=== PATIENT | female | born 1960 | race African-American/Black ===

== ENCOUNTER 2017-03-04 16:31 | Emergency (ER) | payer BC ==
[~2017-03-04] VITALS: Ht 170.2 cm; Wt 91.5 kg
[2017-03-04 16:36] VITALS: TEMP 36.6; Ht 170.2 cm; Wt 91.5 kg
[2017-03-04] MEDS ORDERED: ONDANSETRON INJ 2 MG/ML 2 ML VIAL IV STA (16:55)
[2017-03-04] MEDS ORDERED: SODIUM CHLORIDE 0.9% 1000ML 1,000 ML IV STA (16:55)
--- NOTE | 2017-03-04 17:05 | EMERGENCY ROOM VISIT NOTE ---
History Report prepared by You: Nessa Hopkins Under the Supervision of: Dr. Sandor Koehler M.D. First contact with patient: 16:40 Chief Complaint: NAUSEA Stated Complaint: VOMIT, CHILLS, DIAHRREA, DEHYDRATION Nursing Triage Summary: pt reports thinks ate a bad piece of chicken has diarrhea and vomiting since 1100 today. feels dehydrated. 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 She believes that she may have eaten a "bad spirited" chicken last night. She felt the chicken tasted different. She woke up this morning feeling like she needed to go to the bathroom, though she could not go this morning. She notes that after about an hour of driving this morning she began feeling nauseous and then vomited. She notes that she felt better after vomiting, though she started to experience abdominal pain. She notes that she has experienced abdominal pain every time she eats. She currently rates her pain an 8/10 in severity. She notes that she cannot keep any food down. She notes that it doesn't feel gastric, but more intestinal. She notes that the abdominal pain now feels like contractions. She notes that she had an episode of diarrhea in her pants a few hours ago. She states that she does not normally get sick. She notes this is her first time in an emergency room. She notes that she interacts with patients that have HIV. She notes that she is post-menauposal. She denies any fevers, chest pain, or urinary symptoms. 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 A total of 10 systems reviewed and were otherwise negative. Past Medical & Surgical Medical Problems: (1) HTN (hypertension) Old medical records were reviewed. Nurse's notes were reviewed and I agree with. Family History No significant family history Social History Smoking Status: Never Smoker Smokeless Tobacco Use: No Alcohol Use: occasionally Drug Use: none Marital Status: single Housing Status: lives with family Occupation Status: employed Current/Historical Medications Scheduled Bisoprolol Fumarate (Bisoprolol Fumarate/[place] 2.5-6.25 mg), 1 TAB PO DAILY Cholecalciferol (Vitamin D), 10,000 UNITS PO WK Folic Acid (Folic Acid), 1 CAP PO DAILY Terbinafine Hcl (Lamisil), 1 TAB PO DAILY Thyroid ([place] Thyroid), 180 MG PO DAILY Allergies Coded Allergies: Naproxen (Verified Allergy, Severe, FACE SWELLING, 03/04/17) Physical Exam Vital Signs Date Time Temp Pulse Resp B/P (MAP) Pulse Ox O2 Delivery O2 Flow Rate FiO2 03/04/17 18:30 90 18 113/82 98 Room Air 03/04/17 17:58 90 20 129/80 97 Room Air 03/04/17 16:36 36.6 83 18 146/89 97 Room Air Physical Exam General: Mildly uncomfortable-appearing middle-aged female in no acute distress. Complains of vomiting and abdominal pain. HEENT: Normal cephalic atraumatic. Pupils are equal round and reactive to light. Extraocular movements are intact. Oropharynx is pink with moist mucous membranes. No swelling of the mouth lips or tongue. Neck: Supple with a midline trachea. No meningeal signs or stiffness, no JVD or bruits. No Stridor. Chest: Clear to auscultation bilaterally. No wheezes or rhonchi. No increased work of breathing. Heart: regular rate and rhythm. Abdomen: Soft nontender, nondistended without rebound guarding or rigidity. Extremities: No cyanosis clubbing or edema. No calf tenderness or assymetry Spine/Back. Non tender to palpation. No CVA tenderness Skin: Good turgor without rashes. Neurologic exam: Cranial nerves two through 12 are intact. Motor and sensation are intact and symmetrical throughout. Medical Decision & Procedures Laboratory Results 03/04/17 17:15 Red Blood Count 4.93, Mean Corpuscular Volume 87.8, Mean Corpuscular Hemoglobin 29.4, Mean Corpuscular Hemoglobin Concent 33.5, Mean Platelet Volume 9.7, Neutrophils (%) (Auto) 93.6, Lymphocytes (%) (Auto) 4.3, Monocytes (%) (Auto) 1.5, Eosinophils (%) (Auto) 0.2, Basophils (%) (Auto) 0.0, Neutrophils # (Auto) 9.69, Lymphocytes # (Auto) 0.45, Monocytes # (Auto) 0.16, Eosinophils # (Auto) 0.02, Basophils # (Auto) 0.00 03/04/17 17:15 Test 03/04/17 17:15 White Blood Count 10.36 K/uL (4.8-10.8) Red Blood Count 4.93 M/uL (4.2-5.4) Hemoglobin 14.5 g/dL (12.0-16.0) Hematocrit 43.3 % (37-47) Mean Corpuscular Volume 87.8 fL (80-100) Mean Corpuscular Hemoglobin 29.4 pg (25-34) Mean Corpuscular Hemoglobin Concent 33.5 g/dl (32-36) Platelet Count 176 K/uL (130-400) Mean Platelet Volume 9.7 fL (7.4-10.4) Neutrophils (%) (Auto) 93.6 % Lymphocytes (%) (Auto) 4.3 % Monocytes (%) (Auto) 1.5 % Eosinophils (%) (Auto) 0.2 % Basophils (%) (Auto) 0.0 % Neutrophils # (Auto) 9.69 K/uL (1.4-6.5) Lymphocytes # (Auto) 0.45 K/uL (1.2-3.4) Monocytes # (Auto) 0.16 K/uL (0.11-0.59) Eosinophils # (Auto) 0.02 K/uL (0-0.5) Basophils # (Auto) 0.00 K/uL (0-0.2) RDW Standard Deviation 46.2 fL (36.4-46.3) RDW Coefficient of Variation 14.4 % (11.5-14.5) Immature Granulocyte % (Auto) 0.4 % Immature Granulocyte # (Auto) 0.04 K/uL (0.00-0.02) Anion Gap 6.0 mmol/L (3-11) Est Creatinine Clear Calc Drug Dose 73.2 ml/min Estimated GFR () 72.2 Estimated GFR (Non- 62.3 BUN/Creatinine Ratio 11.3 (10-20) Calcium Level 9.1 mg/dl (8.5-10.1) Total Bilirubin 0.6 mg/dl (0.2-1) Direct Bilirubin 0.1 mg/dl (0-0.2) Aspartate Amino Transf (AST/SGOT) 17 U/L (15-37) Alanine Aminotransferase (ALT/SGPT) 21 U/L (12-78) Alkaline Phosphatase 89 U/L (45-117) Total Protein 8.3 gm/dl (6.4-8.2) Albumin 3.9 gm/dl (3.4-5.0) Lipase 83 U/L (73-393) Laboratory studies as stated above per my review. Medications Administered Medications (Trade) Dose Ordered Sig/Luis Route Start Time Stop Time Status Last Admin Dose Admin Sodium Chloride 1,000 ml @ 999 mls/hr Q1H1M STAT IV 03/04/17 16:55 03/04/17 17:55 DC 03/04/17 17:13 999 MLS/HR Ondansetron HCl (Zofran Inj) 4 mg NOW STAT IV 03/04/17 16:55 03/04/17 16:56 DC 03/04/17 17:12 4 MG Ondansetron HCl (ZOFRAN ODT 4MG Home Pack) 1 homepack UD ONCE PO 03/04/17 18:15 03/04/17 18:16 DC 03/04/17 18:15 1 HOMEPACK ED Course 1642: Past medical records reviewed. The patient was evaluated in room A4B, and a complete history and physical examination were performed. 1655: Ordered Zofran 4 mg IV and Sodium Chloride 1,000 ml @ 999 mls/hr IV 1746: I reassessed the patient at this time. She is resting comfortably. 5: Ordered Zofran 1 homepack PO 1820: I reassessed the patient at this time. She is feeling better and resting comfortably. 1840: I reassessed the patient at this time. She is feeling better and resting comfortably. I discussed the results and treatment plan with the patient. I answered all pertaining questions that she had. She expressed understanding and verbalized agreement. The patient will be discharged home. Medical Decision Differentials include, but are not limited to: gastroenteritis, colitis, appendicitis, gall bladder disease, and electrolyte or metabolic abnormalities. This patient comes in as described above. She suspected that she ate some bad chicken last night and has a crampy abdominal pain nausea vomiting and diarrhea since then. No blood or melena in her stool or vomit no fever on exam she is minimal tenderness in the lower abdomen and mostly diffusely no peritonitis. IV access was established. she was given 1 L IV normal saline bolus and Zofran 4 mg IV and felt significantly better. she has no further pain and her abdomen is benign. she's had no white count or fever to suggest infection. she's had no acute electrolyte or metabolic abnormalities. She has nothing to suggest liver or gallbladder or pancreas disease. She feels her and would like to home. At this point, I think this most likely was related to something she ate and I do not think is likely appendicitis or any other acute intra-abdominal process. At this point I do not feel she needs a CAT scan and the patient agrees I did encourage her to follow-up here or at her local ER if the pain recurs or increases or she has fever or any new problems. She was given Zofran home pack and is going to follow-up with her doctor tomorrow for recheck return if: Increasing pain, worsening of symptoms, any new problems or concerns. She is happy the plan and discharged to home. Medication Reconcilliation Current Medication List: was personally reviewed by me Blood Pressure Screening Patient's blood pressure: Elevated blood pressure Blood pressure disposition: Elevated BP felt to be situational, Referred to PCP Impression Primary Impression: Gastroenteritis Additional Impressions: Dehydration Lower abdominal pain Scribe Attestation The scribe's documentation has been prepared under my direction and personally reviewed by me in its entirety. I confirm that the note above accurately reflects all work, treatment, procedures, and medical decision making performed by me. Departure Information Dispostion Home / Self-Care Referrals No Doctor, Assigned (PCP) Forms HOME CARE DOCUMENTATION FORM, IMPORTANT VISIT INFORMATION Patient Instructions My [facility] Additional Instructions Rest. Drink plenty of fluids. Mild diet. Return if: Worsening of symptoms, increasing pain, not tolerating fluids, any new problems or concerns Use Zofran 4 mg every 6 hours if needed for nausea Follow up with your doctor in 1-2 days for recheck Problem Qualifiers
[2017-03-04 17:23] LABS: EOS % 0.2 %; EOS ABS # 0.02 K/uL (0-0.5); HEMATOCRIT 43.3 % (37-47); HEMOGLOBIN 14.5 g/dL (12.0-16.0); IG# 0.04 K/uL (0.00-0.02); LYMPH % 4.3 %; LYMPH ABS # 0.45 K/uL (1.2-3.4); MEAN CELL VOLUME 87.8 fL (80-100); MEAN CORPUSCULAR HEMOGLOBIN 29.4 pg (25-34); MEAN CORPUSCULAR HGB CONC 33.5 g/dl (32-36); MEAN PLATELET VOLUME 9.7 fL (7.4-10.4); MONO % 1.5 %; MONO ABS # 0.16 K/uL (0.11-0.59); NEUT % 93.6 %; NEUT ABS # 9.69 K/uL (1.4-6.5); PLATELET COUNT 176 K/uL (130-400); RED CELL DISTRIBUTION WIDTH CV 14.4 % (11.5-14.5); RED CELL DISTRIBUTION WIDTH SD 46.2 fL (36.4-46.3); WHITE BLOOD COUNT 10.36 K/uL (4.8-10.8)
[2017-03-04] MEDS ORDERED: CHOL1TAB42 PO (17:25)
[2017-03-04] MEDS ORDERED: ZC25 PO (17:25)
[2017-03-04] MEDS ORDERED: TERB250T51 PO (17:25)
[2017-03-04] MEDS ORDERED: FOLI5CAP PO (17:25)
[2017-03-04] MEDS ORDERED: THYR180T PO (17:25)
[2017-03-04 17:42] LABS: CREATININE 1.02 mg/dl (0.60-1.20)
[2017-03-04 17:43] LABS: ALBUMIN 3.9 gm/dl (3.4-5.0); CALCIUM 9.1 mg/dl (8.5-10.1); POTASSIUM 3.8 mmol/L (3.5-5.1)
[2017-03-04 17:45] LABS: TOTAL PROTEIN 8.3 gm/dl (6.4-8.2)
[2017-03-04] MEDS ORDERED: ONDANSETRON HOME PACK 4MG OD TAB PO ONE (18:15)
[2017-03-04 18:30] VITALS: BP 113/82; PULSE 90; O2SAT 98
== END 2017-03-04 18:51 | disposition home or self-care (01) ==
LOC: C.EDB 16:33 → C.EDA 18:51
DX: K52.9 Noninfective gastroenteritis and colitis, unspecified (principal); E86.0 Dehydration; R10.30 Lower abdominal pain, unspecified; I10 Essential (primary) hypertension; Z78.0 Asymptomatic menopausal state